=== PATIENT | female | born 1975 | race Caucasian/White ===

== ENCOUNTER 2016-10-30 16:42 | Emergency (ER) | payer OTHER ==
[~2016-10-30] VITALS: Ht 160 cm; Wt 72.0 kg
[2016-10-30 16:45] VITALS: Ht 160 cm; Wt 72.0 kg
--- NOTE | 2016-10-30 18:39 | RADRPT ---
PROCEDURE: Left knee radiographs. CLINICAL INDICATION: Left knee pain. TECHNIQUE: Three views. Weight bearing. Frontal, lateral, and patellar view. COMPARISON: No prior studies are available for comparison. FINDINGS: There is no fracture or dislocation. The soft tissues are normal. Small osteophytes are noted arising from all 3 joint compartment margins. There is no joint space n arrowing or deformity. There is no lytic or blastic lesion. There is no radiopaque foreign body. IMPRESSION: 1. Mild degenerative change. 2. Otherwise normal images of the left knee. RPTAT: QQ .Eloy Saldaña MD, MD Date Time Electronically viewed and signed by .Eloy Saldaña MD, on 10/30/2016 18:38 .R/
[2016-10-30] MEDS ORDERED: KETOROLAC 60 MG INJ IM STA (19:13)
[2016-10-30] MEDS ORDERED: IBUP-1542 PO (19:25)
--- NOTE | 2016-10-31 01:52 | ERD ---
ER Documentation Chief Complaint Date/Time DATE: 10/31/16 TIME: 01:50 Chief Complaint LT KNEE PAIN X 3 DAYS , DENIES ANY TRAUMA HPI 41-year-old female patient with no significant past medical history presents the ED complaining of left knee pain that started 3 days ago. Denies any trauma. Reports that she feels like a clicking sensation in her left knee. States that it is predominantly in the middle with some achy pain. Reports that she has been taking Advil with slight relief of her symptoms. Denies any fever, loss of sensation, loss of range of motion, weakness, numbness or tingling, increased redness for swelling. ROS All systems reviewed and are negative except as per history of present illness. Medications Home Meds Active Scripts Ibuprofen* (Motrin*) 600 Mg Tab, 600 MG PO Q6, #30 TAB take with food Prov:NIRMAL SMITH PA-C 10/30/16 Allergies Allergies: Coded Allergies: No Known Allergy (Unverified , 10/30/16) PMhx/Soc Medical and Surgical Hx: pt denies Medical Hx, pt denies Surgical Hx Hx Alcohol Use: Yes (OCCASIONAL) Hx Substance Use: No Hx Tobacco Use: No Physical Exam Vitals Vital Signs Date Time Temp Pulse Resp B/P Pulse Ox O2 Delivery O2 Flow Rate FiO2 10/30/16 16:45 98.2 84 16 119/83 99 Physical Exam Const: Ifm-ake-incfwayoa, well-nourished. In no acute distress. Head: Atraumatic, normocephalic Eyes: Normal Conjunctiva without injection ENT: Normal external ear, nose and mouth. Neck: Full range of motion. No meningismus. Resp: Clear to auscultation bilaterally. No wheezing, rhonchi, rales, or crackles. No accessory muscle use. No retractions. Cardio: Regular rate and rhythm, no murmurs Skin: No petechiae or rashes Back: No midline tenderness. No CVA tenderness. Ext: No cyanosis, or edema. Cap refill less than 2 seconds. Distal pulses intact bilaterally. Tenderness palpation of the left middle knee region with no erythema, edema, fluctuance, induration, warmth to touch. Full range of motion of the bilateral knees with flexion. Neur: Awake and alert. Limping gait due to pain. Muscle strength 5/5. Sensation intact bilaterally. Psych: Normal Mood and Affect Results 24 hrs Current Medications Medications (Trade) Dose Ordered Sig/David Route PRN Reason Start Time Stop Time Status Last Admin Dose Admin Ketorolac Tromethamine (Toradol) 60 mg ONCE STAT IM 10/30/16 19:13 10/30/16 19:14 DC 10/30/16 19:17 Procedures/MDM 41-year-old female patient with no significant past medical history presents the ED complaining of left knee pain that started 3 days ago. Patient is afebrile nontoxic appearing. Patient has normal vital signs. A left knee x- ray was ordered to further evaluate patient. PROCEDURE: Left knee radiographs. CLINICAL INDICATION: Left knee pain. TECHNIQUE: Three views. Weight bearing. Frontal, lateral, and patellar view. COMPARISON: No prior studies are available for comparison. FINDINGS: There is no fracture or dislocation. The soft tissues are normal. Small osteophytes are noted arising from all 3 joint compartment margins. There is no joint space narrowing or deformity. There is no lytic or blastic lesion. There is no radiopaque foreign body. IMPRESSION: 1. Mild degenerative change. 2. Otherwise normal images of the left knee. Patient is placed in a Elvin wrap of the left knee. Crutches given to patient to help with ambulation Splint Assessment: Neurovascularly intact pre and post splint placement with good fit. Patient's extremity symptoms have stabilized while they have been evaluated in the department and are appropriate for outpatient follow up. No evidence of fractures, dislocations, compartment syndrome, neurologic injury, vascular injury, open joint, open fracture, tendon laceration, septic arthritis, osteomyelitis, DVT, foreign body, or other emergent conditions. Discharge medications: Ibuprofen Follow up with primary care physician in 1-2 days. Instructed patient to return to the ED sooner for any worsening symptoms. Patient's questions were answered. Patient understood and agreed with discharge plan. Patient discharged stable. Departure Diagnosis: Primary Impression: Knee pain Laterality: left Chronicity: unspecified Qualified Code: M25.562 - Left knee pain, unspecified chronicity Condition: Stable Patient Instructions: Knee Pain, Uncertain Cause Referrals: COMM[facility]ITY CL[facility]ICS YOU HAVE RECEIVED A MEDICAL SCREENING EXAM AND THE RESULTS INDICATE THAT YOU DO NOT HAVE A CONDITION THAT REQUIRES URGENT TREATMENT IN THE EMERGENCY DEPARTMENT. FURTHER EVALUATION AND TREATMENT OF YOUR CONDITION CAN WAIT UNTIL YOU ARE SEEN IN YOUR DOCTORS OFFICE WITHIN THE NEXT 1-2 DAYS. IT IS YOUR RESPONSIBILITY TO MAKE AN APPOINTMENT FOR FOLOW-UP CARE. IF YOU HAVE A PRIMARY DOCTOR --you should call your primary doctor and schedule an appointment IF YOU DO NOT HAVE A PRIMARY DOCTOR YOU CAN CALL OUR PHYSICIAN REFERRAL HOTLINE AT IF YOU CAN NOT AFFORD TO SEE A PHYSICIAN YOU CAN CHOSE FROM THE FOLLOWING [facility] [address] [facility] [address] [facility] [address] [facility] [address] [facility] [address] [facility]. [facility] [address] [facility]. [facility] YOU HAVE RECEIVED A MEDICAL SCREENING EXAM AND THE RESULTS INDICATE THAT YOU DO NOT HAVE A CONDITION THAT REQUIRES URGENT TREATMENT IN THE EMERGENCY DEPARTMENT. FURTHER EVALUATION AND TREATMENT OF YOUR CONDITION CAN WAIT UNTIL YOU ARE SEEN IN YOUR DOCTORS OFFICE WITHIN THE NEXT 1-2 DAYS. IT IS YOUR RESPONSIBILITY TO MAKE AN APPOINTMENT FOR FOLOW-UP CARE. IF YOU HAVE A PRIMARY DOCTOR --you should call your primary doctor and schedule and appointment IF YOU DO NOT HAVE A PRIMARY DOCTOR YOU CAN CALL OUR PHYSICIAN REFERRAL HOTLINE AT . IF YOU CAN NOT AFFORD TO SEE A PHYSICIAN YOU CAN CHOSE FROM THE FOLLOWING [facility]: [facility] [address] [place] [address] [facility] [address] [place] [address] [facility] [address] [place] [address] [facility] Urgent Care 7 a.m.- 11 p.m. Every Day of the Week NO APPOINTMENT OR AUTHORIZATION NEEDED SO [facility] Hours: Mon-Fri 9:00 AM - 5:00 PM Additional Instructions: Call your primary care doctor TOMORROW for an appointment during the next 2-3 days. See the doctor sooner or return here if your condition worsens before your appointment time. NIRMAL SMITH PA-C Oct 31, 2016 01:52 NIRMAL SMITH PA-C Oct 31, 2016 01:52
== END 2016-10-30 19:35 | disposition home or self-care (01) ==
LOC: FTE 16:42
DX: M25.562 Pain in left knee (principal)
CPT/HCPCS: 73562; 96372; J1885; Z7502